=== PATIENT | male | born 1995 | race Caucasian/White ===

== ENCOUNTER 2019-01-27 21:48 | Emergency (ER) | payer BC, OTHER ==
--- NOTE | 2019-01-27 21:56 | PDOC ---
History of Present Illness - General Chief Complaint: Pain, Acute Stated Complaint: WINDOW SLAMMED ON RIGHT INDEX FINGER Time Seen by Provider: 01/27/19 21:56 History Source: Patient Exam Limitations: No Limitations - History of Present Illness Initial Comments: 01/27/19 22:05 This is a 24-year-old male who comes in complaining of pain to his right index finger. Patient said he slammed a window on top of his finger. Patient said is said it happened approximately half hour prior to arrival. Patient did not take anything for the pain. Patient is otherwise healthy his last tetanus was approximately 9 or 10 years ago. Allergies: as per nursing notes Past Medical History: none Social history: Lives with family. No smoking. No alcohol. No illicit drugs. Surgical history: None General: No fevers or chills, no weakness, no weight loss HEENT: No change in vision. No sore throat,. No ear pain CardioVascular: no chest discomfort. No shortness of breath Respiratory:No cough, or wheezing. Gastrointestinal: no nausea, vomiting, diarrhea or constipation, No rectal bleeding Genitourinary: No dysuria, hematuria, or frequency Musculoskeletal: No joint or muscle pain or swelling, right index finger injury Neurologic: No headache, vertigo, dizziness or loss of consciousness Psychiatric: nor depression Skin: No rashes or easy bruising Endocrine: no increased thirst or abnormal weight change Allergic: no skin or latex allergy All other systems reviewed and normal GENERAL: The patient is awake, alert, and fully oriented, in no acute distress. HEAD: Normal with no signs of trauma. EYES: Pupils equal, round and reactive to light, extraocular movements intact, sclera anicteric, conjunctiva clear. EXTREMITIES:atraumatic, Normal range of motion, no edema. Right index finger there is avulsion of the nail with a laceration of the nailbed there is no obvious deformity neurovascular is intact NEUROLOGICAL: Normal speech, normal gait. PSYCH: Normal mood, normal affect. SKIN: Warm, Dry, normal turgor, no rashes or lesions noted. 01/27/19 23:46 Procedure note laceration repair Finger was anesthetized with 5 mL of 1% lidocaine no epinephrine via digital block Fingernail was removed and laceration was closed with a total of 4 sutures of 3- 0 chromic. X-ray was done that showed a minimally displaced tuft fracture of the distal phalanx Splint was applied patient was given pain medication and discharged home. Patient was given for follow-up. Occurred: reports: just prior to arrival Past History - Past Medical History Allergies/Adverse Reactions: Allergies Allergy/AdvReac Type Severity Reaction Status Date / Time No Known Allergies Allergy Verified 01/27/19 21:49 Home Medications: Ambulatory Orders Cephalexin [Keflex] 500 mg PO QID #28 capsule 01/27/19 *DC/Admit/Observation/Transfer Diagnosis at time of Disposition: Closed fracture of tuft of distal phalanx of finger Nailbed laceration, finger Qualifiers: Encounter type: initial encounter Qualified Code(s): S61.319A - Laceration without foreign body of unspecified finger with damage to nail, initial encounter - Discharge Dispostion Disposition: HOME Condition at time of disposition: Stable Decision to Admit order: No - Prescriptions Prescriptions: Cephalexin [Keflex] 500 mg PO QID #28 capsule - Referrals Referrals: López Reynoso [Primary Care Provider] - Keven Infante MD [Staff Physician] - - Patient Instructions Additional Instructions: Tylenol or Motrin as needed for pain. Wear the splint until you see the orthopedist. Keflex 1 tablet 4 times a day. Return to the emergency department immediately with ANY new, persistent or worsening symptoms. Continue any medications as previously prescribed by your physician. You should follow up with your primary doctor as soon as possible regarding today's emergency department visit. . Please make sure your doctor reviews the results of your emergency evaluation. Thank you for coming to the Emergency Department today for your care. It was a pleasure to see you today. Please note that your evaluation is INCOMPLETE until you follow-up with your doctor. - Post Discharge Activity
[2019-01-27 22:06] VITALS: BMI 24.3
[2019-01-27] MEDS ORDERED: LIDOCAINE HCL 1%, 10 MG/ML (20ML VIAL) ONE (22:13)
[2019-01-27] MEDS ORDERED: IBUPROFEN 400 MG TABLET (FP) PO ONE ×2 (22:35→22:39)
[2019-01-27] MEDS ORDERED: DIPHTH,PERTUSS(ACELL),TET 0.5 ML DISP.SYRIN IM ONE ×2 (23:33→23:50)
[2019-01-27] MEDS ORDERED: CEPHALEXIN MONOHYDRATE 500 MG CAPSULE (UD) PO ONE (23:34)
[2019-01-27] MEDS ORDERED: CEPHALEXIN MONOHYDRATE 500 MG CAPSULE (UD) ONE (23:36)
[2019-01-27 23:41] VITALS: BP 116/68; PULSE 94; TEMP 98.4
== END 2019-01-27 23:58 | disposition home or self-care (01) ==
LOC: FER 21:48
PROC: 2W3JX1Z Immobilization of Right Finger using Splint (ICD-10-PCS; principal; 2019-01-27)
DX: S61.212S Laceration without foreign body of right middle finger without damage to nail, sequela (principal); Y92.9 Unspecified place or not applicable
CPT/HCPCS: 73140-TC-RT-FY; 90715; 99281-25

== ENCOUNTER 2019-01-28 09:29 | Emergency (ER) | payer BC ==
--- NOTE | 2019-01-28 09:46 | PDOC ---
Suture Removal/Wound Check HPI - History of Present Illness Chief Complaint: Laceration Stated Complaint: SUTURED SITE OOZING BLOOD Time Seen by Provider: 01/28/19 09:34 History Source: Yes: Patient Exam Limitations: Yes: No Limitations Treated at: [facility] ED Date of Last ED visit: 01/27/19 - Previous ED Treatment Type of procedure performed on last visit: Yes: Laceration Repair Tetanus Immunization: Yes: Up to Date - Onset of Previous Treatment Comment:: 01/28/19 09:42 24 y/o male with fractured finger and laceration repair returns to ER due to site bleeding. Painful. Using splint. No fever or chills. Painful to touch. Occurred yesterday. Past History - Past Medical History Allergies/Adverse Reactions: Allergies Allergy/AdvReac Type Severity Reaction Status Date / Time No Known Allergies Allergy Verified 01/28/19 09:30 Home Medications: Ambulatory Orders Cephalexin [Keflex] 500 mg PO QID #28 capsule 01/27/19 Acetaminophen [Tylenol .Extra-Strength -] 1,000 mg PO PRN 01/28/19 COPD: No - Immunization History Immunization Up to Date: Yes - Suicide/Smoking/Psychosocial Hx Smoking History: Never smoked Have you smoked in the past 12 months: No Hx Alcohol Use: No Drug/Substance Use Hx: No Suture Removal/Wound Check PE - Physical Exam Laceration/Wound Check Symptoms: reports: None Location of Laceration/Wound: right: Finger (2nd digit laceration repair) *Review of Systems - Review of Systems Able to Perform ROS?: Yes Constitutional: No: Chills, Fever Musculoskeletal: Yes: Joint Swelling *Physical Exam - Physical Exam General Appearance: Yes: Nourished, Appropriately Dressed. No: Apparent Distress HEENT: positive: LIDA, Normal ENT Inspection Respiratory/Chest: positive: Lungs Clear, Normal Breath Sounds Cardiovascular: positive: Regular Rhythm, Regular Rate, S1, S2. negative: Edema , JVD, Murmur Vascular Pulses: Femoral (R): 4+, Femoral (L): 4+, Carotid (R): 4+, Carotid (L) : 4+, Dorsalis-Pedis (R): 4+, Doralis-Pedis (L): 4+ Musculoskeletal: positive: Normal Inspection. negative: CVA Tenderness Extremity: positive: Normal Capillary Refill, Swelling. negative: Normal Inspection (right 2nd digit with pain and swelling, area of sutures intact, minimal oozing, no sign of infection, decreased ROM), Normal Range of Motion ( decreased) Integumentary: positive: Normal Color, Dry, Warm Neurologic: positive: cyber intel planner II-XII NML intact, Fully Oriented, Alert, Normal Mood/ Affect, Normal Response, Motor Strength / Medical Decision Making - Medical Decision Making 01/28/19 09:44 Will rebandage area New splint given Follow up for recheck in 305 days If worsen return to ER *DC/Admit/Observation/Transfer Diagnosis at time of Disposition: Nailbed laceration, finger Qualifiers: Encounter type: sequela Qualified Code(s): S61.319S - Laceration without foreign body of unspecified finger with damage to nail, sequela - Discharge Dispostion Disposition: HOME Condition at time of disposition: Stable Decision to Admit order: No - Referrals - Patient Instructions Printed Discharge Instructions: DI for Laceration Repair Additional Instructions: Ice, Motrin, rest Splint Follow up with PMD/Orthopedics If worsen return to ER - Post Discharge Activity
[2019-01-28] MEDS ORDERED: IBUPROFEN 400 MG TABLET (FP) PO ONE ×2 (09:57→10:06)
[2019-01-28 10:13] VITALS: BP 132/82; PULSE 70; TEMP 98.9; BMI 24.3
== END 2019-01-28 10:13 | disposition home or self-care (01) ==
LOC: FER 09:29
PROC: 2W3JX1Z Immobilization of Right Finger using Splint (ICD-10-PCS; principal; 2019-01-28)
DX: Z48.01 Encounter for change or removal of surgical wound dressing (principal)
CPT/HCPCS: 99282-25